=== PATIENT | male | born 1975 | race Hispanic/Latino ===

== ENCOUNTER 2016-10-04 01:01 | Observation (INO) | payer OTHER ==
[2016-10-04 01:09] VITALS: BP 132/74; PULSE 63; RESP 18; TEMP 98; O2SAT 100
[2016-10-04] MEDS ORDERED: Sodium Chloride 0.9% 1,000 ML IV STA (01:26)
[2016-10-04 01:41] LABS: BASO % 0.4 % (0.0-2.0); EOS % 0.4 % (0.0-4.0); HEMATOCRIT 45.4 % (35.0-51.0); LYMPH # 2.6 K/uL (1.0-4.3); LYMPH % 23.3 % (20.0-40.0); MEAN CELL VOLUME 89.5 fl (80.0-94.0); MEAN CORPUSCULAR HGB CONC 33.6 g/dL (33.0-37.0); MEAN PLATELET VOLUME 8.8 fl (7.2-11.7); MONO # 0.7 K/uL (0.0-0.8); MONO % 6.2 % (0.0-10.0); NEUT # 7.9 K/uL (1.8-7.0); NEUT % 69.7 % (50.0-75.0); NRBC % 0.1 % (0.0-0.0); WHITE BLOOD COUNT 11.4 K/uL (4.8-10.8)
[2016-10-04 01:49] LABS: ALB/GLOB RATIO 1.5 (1.0-2.1); ALKALINE PHOSPHATASE 91 U/L (38-126); ALT/SGPT 34 U/L (21-72); AST/SGOT 25 U/L (17-59); BILIRUBIN,TOTAL 0.9 mg/dl (0.2-1.3); BLOOD UREA NITROGEN 17 mg/dl (9-20); CARBON DIOXIDE 27 mmol/L (22-30); CHLORIDE 102 mmol/L (98-107); GFR AFRICAN-AMERICAN > 60; GLUCOSE,RANDOM 96 mg/dL (75-110); LIPASE 70 U/L (23-300); SODIUM 147 mmol/l (132-148); TOTAL PROTEIN 8.5 G/DL (6.3-8.2)
[2016-10-04 02:13] LABS: ALCOHOL SERUM 49 mg/dl (0-10)
[2016-10-04] MEDS ORDERED: Iohexol 240 (50 ml) PO ONE (02:47)
[2016-10-04] MEDS ORDERED: Iohexol 240 (50 ml) ONE (02:52)
[2016-10-04 02:58] LABS: RBC URINE 2 /hpf (0-3); URINE BACTERIA RARE (<OCC); URINE BILIRUBIN NEGATIVE (NEGATIVE); URINE BLOOD NEGATIVE (NEGATIVE); URINE COLOR YELLOW (YELLOW); URINE GLUCOSE (UA) NEG (Normal); URINE KETONE TRACE mg/dL (NEGATIVE); URINE LEUKOCYTE ESTERASE NEG Leu/uL (Negative); URINE PROTEIN 30 mg/dL (NEGATIVE); URINE UROBILINOGEN 0.2-1.0 mg/dL (0.2-1.0); WBC URINE 2 /hpf (0-5)
--- NOTE | 2016-10-04 03:32 | ED PDOC ---
"HPI: Abdomen Time Seen by Provider: 10/04/16 01:04 Chief Complaint (Nursing): Abdominal Pain Chief Complaint (Provider): Adominal pain History Per: Patient History/Exam Limitations: no limitations Onset/Duration Of Symptoms: Hrs (2x) Current Symptoms Are (Timing): Still Present Severity: Moderate Location Of Pain/Discomfort: Epigastric Associated Symptoms: Nausea, Vomiting. denies: Diarrhea, Constipation, Urinary Symptoms Additional Complaint(s): 40 year old male with a pertinent medical history of a cholesystectomy and pancreatitis presents to the ED with complaints of sever epigastric pain that started 2x hours prior to arrival. He reports having normal bowel movements and is passing gas, but complains of having nausea and vomiting. He reports taking oxicodone with no relief. He denies ingesting alcohol, and denies having any associated urinary symptoms. PMD: Ke Brody MD. Past Medical History Reviewed: Historical Data, Nursing Documentation, Vital Signs Vital Signs: Last Vital Signs Temp 98 F 10/04/16 01:04 Pulse 63 10/04/16 01:04 Resp 18 10/04/16 01:04 BP 132/74 10/04/16 01:04 Pulse Ox 100 10/04/16 05:31 - Medical History PMH: Anxiety, Back Problems, Pneumonia Denies: HIV, Chronic Kidney Disease - Surgical History Surgical History: Appendectomy, Cholecystectomy - Family History Family History: States: Unknown Family Hx - Social History Alcohol: None Drugs: Denies - Home Medications Home Medications: Ambulatory Orders Medication Instructions Recorded Dicyclomine [Bentyl] 20 mg PO BID 08/01/16 Omeprazole [Omeprazole] 20 mg PO DAILY 08/01/16 Ondansetron HCl [Ondansetron HCl] 4 mg PO Q6 PRN 08/01/16 ALPRAZolam [Xanax] 2 mg PO TID 08/02/16 Omeprazole Magnesium [Prilosec Otc] 20 mg PO DAILY #30 tcp 10/04/16 - Allergies Allergies/Adverse Reactions: Allergies Allergy/AdvReac Type Severity Reaction Status Date / Time No Known Allergies Allergy Verified 10/16/14 11:19 Review of Systems ROS Statement: Except As Marked, All Systems Reviewed And Found Negative Gastrointestinal: Positive for: Nausea, Vomiting, Abdominal Pain (epigastric). Negative for: Diarrhea, Constipation Physical Exam - Reviewed Nursing Documentation Reviewed: Yes Vital Signs Reviewed: Yes - Physical Exam Appears: Positive for: Well, Non-toxic, No Acute Distress Head Exam: Positive for: ATRAUMATIC, NORMOCEPHALIC Skin: Positive for: Normal Color, Warm, Dry Eye Exam: Positive for: Normal appearance Cardiovascular/Chest: Positive for: Regular Rate, Rhythm Respiratory: Positive for: Normal Breath Sounds Gastrointestinal/Abdominal: Positive for: Tenderness (epigastric tenderness, rest of abdomen is soft) Neurologic/Psych: Positive for: Alert, Oriented (3x) - Laboratory Results Result Diagrams: 10/04/16 01:32 10/04/16 01:32 - ECG O2 Sat by Pulse Oximetry: 100 (RA) Pulse Ox Interpretation: Normal - CT Scan/US abd and pelvis with PO and IV contrast Other Rad Studies (CT/US): Read By Radiologist, Radiology Report Reviewed Medical Decision Making Medical Decision Makin:04 Initial impression: 40 year old male with severe epigastric tenderness. Differential diagnoses include but are not limited to pancreatitis, small bowel obstruction, and gastritis. Initial plan: * CT abd and pelvis w/ PO and IV contrast * alcohol serum * CMP * drug screen, urinary * LDH * lipase * CBC * morphine 4mg IVP * morphine 4mg IVP * IV NS 1,000ml: 1,000mls/hr * omnipaque 240: 50ml PO * pepcid 20mg IVP * urinalysis * reevaluation 2:48 Patient will be placed into ED observation secondary to clinical condition. See ED obs note for further updates. Scribe Attestation: Documented by Janey Roberson, acting as a scribe for uJan Mackenzie MD. Provider Scribe Attestation: All medical record entries made by the Scribe were at my direction and personally dictated by me. I have reviewed the chart and agree that the record accurately reflects my personal performance of the history, physical exam, medical decision making, and the department course for this patient. I have also personally directed, reviewed, and agree with the discharge instructions and disposition. ED OBSERVATION Date of observation admission: 10/04/16 Time of observation admission: 02:48 - Observation admission statement Patient is being placed in observation because:: secondary to clinical condition - Goals of Observation Goals of observation are:: Patient will be placed into ED observation pending CT scans, reevaluation, and final disposition. - Progress Note Progress Note: 10/04/16 04:56 CT abd and pelvis with PO and IV contrast FINDINGS: Lower thorax: No acute findings. ABDOMEN: Liver: Unremarkable. No mass. Gallbladder and bile ducts: Cholecystectomy. No ductal dilation. Pancreas: No ductal dilation. No mass. Spleen: Borderline splenomegaly. Adrenals: No mass. Kidneys and ureters: No mass. No hydronephrosis. Stomach and bowel: No definite mural thickening. No obstruction. Appendix: Appendectomy. PELVIS: Bladder: Unremarkable. Reproductive: Unremarkable as visualized. SCOTT OREILLY | Preliminary Radiology Report HOSPITAL NURSE (QA) DISCREPANCY? If there is a discrepancy between the preliminary and final interpretation, please notify [employer] via [email or web address]. If you do not have access to our QA portal, call our QA team at [phone] CONFIDENTIALITY STATEMENT This report is intended only for the use of the referring physician, and only in accordance with law, If you received this in error, call [phone] Page 2 of 2 ABDOMEN and PELVIS: Intraperitoneal space: No significant fluid collection. No free air. Bones/joints: No acute fracture. Soft tissues: Unremarkable. Vasculature: Unremarkable. No abdominal aortic aneurysm. Lymph nodes: No pathologically enlarged lymph nodes. IMPRESSION: 1. No definite acute intraabdominal abnormality. 2. Incidental/non-acute findings are described above. 10/04/16 05:28 Upon reevaluation, patient is feeling much better and is PO tolerant. Counseling was provided and all questions were answered regarding diagnosis and need for follow up with Dr. aMrio as soon as possible next week. Disposition - Clinical Impression Clinical Impression: Abdominal pain, Gastritis - Disposition Disposition: Routine/Home Disposition Time: 05:28 Condition: IMPROVED"
[2016-10-04] MEDS ORDERED: Sodium Chloride 0.9% 50 ML IV ONE (04:16)
[2016-10-04] MEDS ORDERED: Iohexol 300 100 ML IJ ONE (04:16)
--- NOTE | 2016-10-04 10:28 | CT ---
PROCEDURE: CT Abdomen and Pelvis with contrast HISTORY: diffuse abd pain COMPARISON: 08/02/2016 TECHNIQUE: CT of the abdomen and pelvis was obtained. Coronal and sagittal reformatted images were obtained. Contrast dose: 100 mL. Radiation dose: Total exam DLP = 882.86 mGy-cm. This CT was performed using one or more of the following dose reduction techniques: Automated exposure control, adjustment of the mA and/or KV according to patient size, and/or use of iterative reconstruction technique. FINDINGS: LOWER THORAX: Unremarkable. LIVER: Unremarkable. No gross lesion or ductal dilatation. Punctate calcification in the inferior aspect of the right hepatic lobe. GALLBLADDER AND BILE DUCTS: Gallbladder not seen. Surgical clips seen in the gallbladder fossa. PANCREAS: Unremarkable. No gross lesion or ductal dilatation. SPLEEN: Upper limits normal size of the spleen. ADRENALS: Unremarkable. No mass. KIDNEYS AND URETERS: Unremarkable. No hydronephrosis. No solid mass. VASCULATURE: Unremarkable. No aortic aneurysm. BOWEL: Lack opacification with oral contrast limits evaluation of the colon. Possible surgical clip at the base of the cecum. APPENDIX: Appendix not seen. No evidence of inflammation in the right lower quadrant. PERITONEUM: Unremarkable. No free fluid. No free air. LYMPH NODES: Unremarkable. No enlarged lymph nodes. BLADDER: Unremarkable. REPRODUCTIVE: Unremarkable. BONES: No acute fracture. OTHER FINDINGS: None. IMPRESSION: No acute pathology identified. Please note that this report is in general agreement with the preliminary report provided by Marco A.
== END 2016-10-04 05:27 | disposition home or self-care (01) ==
LOC: H.ER 01:01 → H.EROBSV 02:48
PROVIDERS: ADMIT Emergency Medicine; ATTEND Emergency Medicine
DX: K29.70 Gastritis, unspecified, without bleeding (principal); F41.9 Anxiety disorder, unspecified

== ENCOUNTER 2017-03-13 04:53 | Observation (INO) | payer OTHER ==
[2017-03-13] MEDS ORDERED: Alum-Mag Hydrox-Simethicone Susp (30 mL) PO STA (05:09)
[2017-03-13] MEDS ORDERED: Sodium Chloride 0.9% 1,000 ML IV STA (05:10)
--- NOTE | 2017-03-13 05:17 | ED PDOC ---
HPI: Abdomen Time Seen by Provider: 03/13/17 05:01 Chief Complaint (Nursing): Abdominal Pain History Per: Patient Additional Complaint(s): Pt is a 41 yo male, no PMH, ambulated to ER for eval of abdominal pain, nausea and vomiting x 7-8 episodes onset at 21:00. Pt unable to tolerate any medications PO at home. no fever or chills. no diarrhea Past Medical History Reviewed: Nursing Documentation, Vital Signs Vital Signs: Last Vital Signs Temp 98.5 F 03/13/17 05:03 Pulse 64 03/13/17 05:03 Resp 16 03/13/17 05:03 BP 135/83 03/13/17 05:03 Pulse Ox 99 03/13/17 05:17 - Medical History PMH: Anxiety, Back Problems, Pneumonia Denies: HIV, Chronic Kidney Disease - Surgical History Surgical History: Appendectomy, Cholecystectomy - Family History Family History: States: Unknown Family Hx - Living Arrangements Living Arrangements: With Family - Social History Current smoker - smoking cessation education provided: No Alcohol: None Drugs: Denies - Home Medications Home Medications: Ambulatory Orders Medication Instructions Recorded Dicyclomine [Bentyl] 20 mg PO BID 08/01/16 Omeprazole [Omeprazole] 20 mg PO DAILY 08/01/16 Ondansetron HCl [Ondansetron HCl] 4 mg PO Q6 PRN 08/01/16 ALPRAZolam [Xanax] 2 mg PO TID 08/02/16 Omeprazole Magnesium [Prilosec Otc] 20 mg PO DAILY #30 tcp 10/04/16 - Allergies Allergies/Adverse Reactions: Allergies Allergy/AdvReac Type Severity Reaction Status Date / Time No Known Allergies Allergy Verified 10/16/14 11:19 Review of Systems ROS Statement: Except As Marked, All Systems Reviewed And Found Negative Gastrointestinal: Positive for: Nausea, Vomiting, Abdominal Pain Physical Exam - Reviewed Nursing Documentation Reviewed: Yes Vital Signs Reviewed: Yes - Physical Exam Appears: Positive for: Non-toxic, No Acute Distress, Uncomfortable Head Exam: Positive for: ATRAUMATIC, NORMAL INSPECTION, NORMOCEPHALIC Skin: Positive for: Normal Color, Warm, DRY Eye Exam: Positive for: EOMI, Normal appearance, PERRL ENT: Positive for: Normal ENT Inspection Neck: Positive for: Normal, Painless ROM Cardiovascular/Chest: Positive for: Regular Rate, Rhythm Respiratory: Positive for: CNT, Normal Breath Sounds Gastrointestinal/Abdominal: Positive for: Bowel Sounds, Soft, Tenderness ( epigastric) Back: Positive for: Normal Inspection Extremity: Positive for: Normal ROM Neurologic/Psych: Positive for: Alert, Oriented - ECG O2 Sat by Pulse Oximetry: 99 Medical Decision Making Medical Decision Making: IV access established and treatment initiated with IVF, Zofran and Morphine GI cocktail administered as well Case endorsed to ED MD, Dr. Mackenzie, pending diagnostic review and re-eval Disposition - Clinical Impression Clinical Impression: Gastritis - Patient ED Disposition Is Patient to be Admitted: Transfer of Care - Disposition Disposition: Transfer of Care Disposition Time: 06:00 Condition: STABLE Forms: [employer] (Maltese)
[2017-03-13 05:36] LABS: BASO % 0.3 % (0.0-2.0); EOS % 0.1 % (0.0-4.0); HEMATOCRIT 46.8 % (35.0-51.0); LYMPH # 1.5 K/uL (1.0-4.3); MEAN CELL VOLUME 88.8 fl (80.0-94.0); MEAN CORPUSCULAR HEMOGLOBIN 29.7 pg (27.0-31.0); MEAN CORPUSCULAR HGB CONC 33.5 g/dL (33.0-37.0); MEAN PLATELET VOLUME 8.6 fl (7.2-11.7); MONO # 0.6 K/uL (0.0-0.8); MONO % 5.3 % (0.0-10.0); NEUT # 9.6 K/uL (1.8-7.0); NEUT % 81.3 % (50.0-75.0); RED CELL DISTRIBUTION WIDTH 13.1 % (11.5-14.5); WHITE BLOOD COUNT 11.9 K/uL (4.8-10.8)
[2017-03-13 05:44] LABS: ALB/GLOB RATIO 1.6 (1.0-2.1); ALKALINE PHOSPHATASE 77 U/L (38-126); ALT/SGPT 37 U/L (21-72); AMYLASE 65 U/L (30-110); AST/SGOT 25 U/L (17-59); BILIRUBIN,TOTAL 1.3 mg/dl (0.2-1.3); BLOOD UREA NITROGEN 16 mg/dl (9-20); CALCIUM 10.3 mg/dL (8.4-10.2); CARBON DIOXIDE 26 mmol/L (22-30); CHLORIDE 101 mmol/L (98-107); GFR AFRICAN-AMERICAN > 60; GLUCOSE,RANDOM 108 mg/dL (75-110); LIPASE 23 U/L (23-300); POTASSIUM 4.7 MMOL/L (3.6-5.0); SODIUM 141 mmol/l (132-148); TOTAL PROTEIN 8.3 G/DL (6.3-8.2)
[2017-03-13] MEDS ORDERED: Alum-Mag Hydrox-Simethicone Susp (30 mL) ONE (05:49)
--- NOTE | 2017-03-13 06:01 | ED PDOC ---
- Laboratory Results Result Diagrams: 03/13/17 05:10 03/13/17 05:10 - ECG O2 Sat by Pulse Oximetry: 99 Medical Decision Making Medical Decision Makin -Patient transferred to ut by Eboni HINOJOSA. [address] in ED obs due to patient's continued abd pain. Disposition - Clinical Impression Clinical Impression: Gastritis, Abdominal pain - POA Present On Arrival: None - Disposition Referrals: Kwame Gaffney MD [Staff Provider] - Disposition: Transfer of Care Disposition Time: 07:00 Condition: STABLE Prescriptions: Omeprazole 20 mg PO DAILY #30 capsule. Instructions: Gastritis (ED) Forms: [employer] (Faroese) Patient Signed Over To: Susu Villatoro Handoff Comments: pending CT. ED OBSERVATION Date of observation admission: 03/13/17 Time of observation admission: 06:57 - Observation admission statement Patient is being placed in observation because:: Extended length of workup. - Goals of Observation Goals of observation are:: Diagnosis of condition. - Progress Note Progress Note: 03/13/17 06:57 Patient is having worsening of his abdominal pain, will do CT to r/o SBO given abdominal surgeries.
[2017-03-13] MEDS ORDERED: Iohexol 240 (50 ml) PO ONE (06:54)
[2017-03-13] MEDS ORDERED: Iohexol 240 (50 ml) ONE (06:56)
--- NOTE | 2017-03-13 07:28 | ED PDOC ---
- Laboratory Results Result Diagrams: 03/13/17 05:10 03/13/17 05:10 - ECG O2 Sat by Pulse Oximetry: 99 <Susu Villatoro - Last Filed: 03/13/17 07:28> - Laboratory Results Result Diagrams: 03/13/17 05:10 03/13/17 05:10 <Jim Jaffe - Last Filed: 03/13/17 10:40> Disposition <Susu Villatoro - Last Filed: 03/13/17 07:28> <Jim Jaffe - Last Filed: 03/13/17 10:40> - Clinical Impression Clinical Impression: Gastritis, Abdominal pain - Disposition Condition: STABLE Addendum <Susu Villatoro - Last Filed: 03/13/17 07:28> <Jim Jaffe - Last Filed: 03/13/17 10:40> Addendum: 03/13/17 07:00 Pt signed out by Dr. Mackenzie pending CT. (Susu Villatoro)
[2017-03-13] MEDS ORDERED: Sodium Chloride 0.9% 50 ML IV ONE (09:27)
[2017-03-13] MEDS ORDERED: Iohexol 300 100 ML IJ ONE (09:27)
--- NOTE | 2017-03-13 10:11 | CT ---
PROCEDURE: CT Abdomen and Pelvis with contrast HISTORY: mult abd surgeries, abd pain, r/o sbo COMPARISON: 10/04/2016. TECHNIQUE: Contrast dose: 95 cc Omnipaque 300 Radiation dose: Total exam DLP = 967.85 mGy-cm. This CT exam was performed using one or more of the following dose reduction techniques: Automated exposure control, adjustment of the mA and/or kV according to patient size, and/or use of iterative reconstruction technique. FINDINGS: LOWER THORAX: Unremarkable. LIVER: Hepatic steatosis. No focal masses. No intrahepatic bile duct dilatation or perihepatic ascites. GALLBLADDER AND BILE DUCTS: Status post cholecystectomy. No abnormality is seen in the gallbladder fossa. PANCREAS: Unremarkable. No gross lesion or ductal dilatation. SPLEEN: Borderline splenomegaly. ADRENALS: Unremarkable. No mass. KIDNEYS AND URETERS: Unremarkable. No hydronephrosis. No solid mass. VASCULATURE: Unremarkable. No aortic aneurysm. BOWEL: Dilated loops of proximal small bowel without clear, obvious transition. Differential diagnosis includes early/incomplete small bowel obstruction. Enteritis can also assume this. Constipation without fecal impaction or obstruction. APPENDIX: Not visualized. PERITONEUM: Unremarkable. No free fluid. No free air. LYMPH NODES: Unremarkable. No enlarged lymph nodes. BLADDER: Unremarkable. REPRODUCTIVE: Unremarkable. BONES: No acute fracture. OTHER FINDINGS: None. IMPRESSION: Dilated loops of proximal small bowel. Differential considerations include early/incomplete proximal small bowel obstruction. Enteritis should also be considered. No free air, free fluid or drainable collection.
--- NOTE | 2017-03-13 10:44 | ED PDOC ---
- Laboratory Results Result Diagrams: 03/13/17 05:10 03/13/17 05:10 - ECG O2 Sat by Pulse Oximetry: 99 (RA) Pulse Ox Interpretation: Normal Medical Decision Making Medical Decision Makin03/13/17 07:00 Pt signed out by Dr. Mackenzie pending CT. Time: 10:10 CT Abdomen/Pelvis: FINDINGS: LOWER THORAX: Unremarkable. LIVER: Hepatic steatosis. No focal masses. No intrahepatic bile duct dilatation or perihepatic ascites. GALLBLADDER AND BILE DUCTS: Status post cholecystectomy. No abnormality is seen in the gallbladder fossa. PANCREAS: Unremarkable. No gross lesion or ductal dilatation. SPLEEN: Borderline splenomegaly. ADRENALS: Unremarkable. No mass. KIDNEYS AND URETERS: Unremarkable. No hydronephrosis. No solid mass. VASCULATURE: Unremarkable. No aortic aneurysm. BOWEL: Dilated loops of proximal small bowel without clear, obvious transition. Differential diagnosis includes early/incomplete small bowel obstruction. Enteritis can also assume this. Constipation without fecal impaction or obstruction. APPENDIX: Not visualized. PERITONEUM: Unremarkable. No free fluid. No free air. LYMPH NODES: Unremarkable. No enlarged lymph nodes. BLADDER: Unremarkable. REPRODUCTIVE: Unremarkable. BONES: No acute fracture. OTHER FINDINGS: None. IMPRESSION: Dilated loops of proximal small bowel. Differential considerations include early/incomplete proximal small bowel obstruction. Enteritis should also be considered. No free air, free fluid or drainable collection. Time: 10:40 --Patient is to be admitted inpatient to Med/Surg for SBO, under the care of Dr. Kwame Gaffney Time: 11:00 --Spoke to surgery resident Scribe Attestation: Documented by Marie Montanez, acting as a scribe for Susu Villatoro MD Provider Scribe Attestation: All medical record entries made by the Scribe were at my direction and personally dictated by me. I have reviewed the chart and agree that the record accurately reflects my personal performance of the history, physical exam, medical decision making, and the department course for this patient. I have also personally directed, reviewed, and agree with the discharge instructions and disposition. Disposition - Clinical Impression Clinical Impression: SBO (small bowel obstruction) - POA Present On Arrival: None - Disposition Disposition: Admitted as In-Patient Disposition Time: 10:24 Condition: STABLE
[2017-03-13] MEDS ORDERED: Potassium Ch 20mEq in D5-1/2NS 1,000 ML IV SCH ×2 (11:00→11:30)
[2017-03-13 12:06] LABS: PARTIAL THROMBOPLASTIN TIME 34.9 Seconds (25.6-37.1)
--- NOTE | 2017-03-13 12:48 | CP.PCM.CON ---
<YannickTita - Last Filed: 03/13/17 12:45> History of Present Illness - History of Present Illness History of Present Illness: General surgery - DR. Trinidad 41yo M who is s/p lap appendectomy several years ago and s/p lap eloise in Jul 2016, presenting w/ N/V and abdominal pain since last night. Pt states that he ate some pasta at a kid[employer] alliance party and a few hours later he began to feel nauseous and vomited several times, gastric contents, followed by dry heaving. He states that afterwards he developed some cramping abdominal pains throughout his abdomen, intermittent, moderate intensity. He denies any further vomiting since arrival. Pt states that he had a BM yesterday and it was normal. He denies Fevers/Chills, SOB/Chest pain, Dysuria/Hematuria, Constipation, Diarrhea. CT done in the ED shows some mildly dilated small bowel loops proximally which may suggest early partial SBO vs. enteritis. Labs significant for WBC of 11.9 Review of Systems - Review of Systems All systems: reviewed and no additional remarkable complaints except (as per HPI ) Past Patient History - Past Medical History & Family History Past Medical History?: Yes - Past Social History Alcohol: None Drugs: Denies - CARDIAC Hx Cardiac Disorders: No - PULMONARY Hx Pneumonia: Yes - NEUROLOGICAL Hx Neurological Disorder: No - HEENT Hx HEENT Problems: No - RENAL Hx Chronic Kidney Disease: No - ENDOCRINE/METABOLIC Hx Endocrine Disorders: No - HEMATOLOGICAL/ONCOLOGICAL Hx Blood Disorders: No - INTEGUMENTARY Hx Dermatological Problems: No - MUSCULOSKELETAL/RHEUMATOLOGICAL Hx Musculoskeletal Disorders: Yes Hx Back Pain: Yes Hx Herniated Disk: Yes - GASTROINTESTINAL Hx Gastrointestinal Disorders: Yes Other/Comment: Pancreatitis secondary to gallstones - GENITOURINARY/GYNECOLOGICAL Hx Genitourinary Disorders: No - PSYCHIATRIC Hx Anxiety: Yes - SURGICAL HISTORY Hx Appendectomy: Yes Hx Cholecystectomy: Yes - ANESTHESIA Hx Anesthesia: Yes Hx Anesthesia Reactions: No Hx Malignant Hyperthermia: No Meds Allergies/Adverse Reactions: Allergies Allergy/AdvReac Type Severity Reaction Status Date / Time No Known Allergies Allergy Verified 10/16/14 11:19 - Medications Medications: Current Medications Hydromorphone HCl (Dilaudid) 1 mg IVP Q4H PRN PRN Reason: Pain, severe (8-10) Potassium Chloride/Dextrose/Sod Cl (Potassium Chl 20 Meq In D5-1/2ns) 1,000 mls @ 84 mls/hr IV .[id number] ROBERTO Stop: 03/14/17 11:23 Ondansetron HCl (Zofran Inj) 4 mg IVP Q6 PRN PRN Reason: Nausea/Vomiting Pantoprazole Sodium (Protonix Inj) 40 mg IVP DAILY ROBERTO Physical Exam - Constitutional Appears: No Acute Distress - Head Exam Head Exam: ATRAUMATIC, NORMAL INSPECTION, NORMOCEPHALIC - Eye Exam Eye Exam: Normal appearance - Respiratory Exam Respiratory Exam: NORMAL BREATHING PATTERN. absent: Respiratory Distress - Cardiovascular Exam Cardiovascular Exam: REGULAR RHYTHM - GI/Abdominal Exam GI & Abdominal Exam: Soft, Tenderness (mild ttp diffusely). absent: Distended, Firm, Guarding, Rebound - Neurological Exam Neurological exam: Alert, Oriented x3 - Psychiatric Exam Psychiatric exam: Normal Affect, Normal Mood - Skin Skin Exam: Dry, Intact Results - Vital Signs Recent Vital Signs: Last Vital Signs Temp 98.5 F 03/13/17 05:03 Pulse 64 03/13/17 05:03 Resp 16 03/13/17 05:03 BP 135/83 03/13/17 05:03 Pulse Ox 99 03/13/17 11:47 - Labs Result Diagrams: 03/13/17 05:10 03/13/17 05:10 Labs: Laboratory Results - last 24 hr 03/13/17 03/13/17 11:30 11:30 PT 12.4 INR 1.2 APTT 34.9 Blood Type O POSITIVE Antibody Screen Negative BBK History Checked No verified bt Assessment & Plan - Assessment and Plan (Free Text) Assessment: 41yo M w/ hx of lap appy and eloise, presenting with N/V and abdominal pain since last night -CT reviewed, no obvious obstruction or transition point -Exam and Hx more consistent with Enteritis -Continue bowel rest w/ NPO for now, then slowly ADAT when symptoms improve -IVF and Abx, Zofran prn -No surgical intervention DW DR Amos Lanier PGY3 <Paul Francis - Last Filed: 03/13/17 15:02> History of Present Illness - History of Present Illness History of Present Illness: Patient was seen and examined at the bedside. Agree with resident's note above. Passing flatus today and had a normal bowel movements yesterday. Currently states that abdominal pain has improved, currently denies any nausea or vomiting. Meds - Medications Medications: Current Medications Hydromorphone HCl (Dilaudid) 0.5 mg IVP Q4H PRN PRN Reason: Pain, severe (8-10) Last Admin: 03/13/17 13:22 Dose: 0.5 mg Lactated Ringer's (Lactated Ringer's) 1,000 mls @ 100 mls/hr IV .Q10H ROBERTO Last Admin: 03/13/17 13:22 Dose: 100 mls/hr Ciprofloxacin (Cipro 400mg/200ml Dsw) 400 mg in 200 mls @ 200 mls/hr IVPB BID ROBERTO Metronidazole 250 mg/ (Miscellaneous) 50 mls @ 50 mls/hr IVPB Q8 [facility] Stop: 03/14/17 09:59 Ondansetron HCl (Zofran Inj) 4 mg IVP Q4 PRN PRN Reason: Nausea/Vomiting Pantoprazole Sodium (Protonix Inj) 40 mg IVP DAILY [facility] Results - Vital Signs Recent Vital Signs: Last Vital Signs Temp 98.5 F 03/13/17 05:03 Pulse 64 03/13/17 05:03 Resp 16 03/13/17 05:03 BP 135/83 03/13/17 05:03 Pulse Ox 99 03/13/17 11:47 - Labs Result Diagrams: 03/13/17 05:10 03/13/17 05:10 Labs: Laboratory Results - last 24 hr 03/13/17 03/13/17 11:30 11:30 PT 12.4 INR 1.2 APTT 34.9 Blood Type O POSITIVE Antibody Screen Negative BBK History Checked No verified bt - Imaging and Cardiology CT scan - abdomen Status: Image reviewed by me, Report reviewed by me Assessment & Plan - Assessment and Plan (Free Text) Plan: - Start clear liquid diet - pain control - Zofran prn - Pepcid - repeat labs in am - No general surgery intervention at present time - Will follow
[2017-03-13] MEDS: Lactated Ringer's 1,000 ML IV SCH (13:22)
[2017-03-13] MEDS: HYDROmorphone 0.5 mg/0.5 ml ISec IVP PRN ×3 (13:22→21:40)
--- NOTE | 2017-03-13 14:22 | CP.PCM.HP ---
History of Present Illness - History of Present Illness History of Present Illness: 41 y/o M with PMHx significant for anxiety, s/o cholecystectomy on July/2016 , and appendectomy 4 years ago who presents to ED c/o upper abdominal pain that started last night around 9 pm, associated with nausea, and 8-9 nonbloody vomits. Patient states that this is the first time he presents these symptoms. Last bowel movement was yesterday and normal. Reports a regular, daily BM pattern. Denies fevers, chills, recent infection, urinary symptoms, blood in urine or stools. PMD: Dr. Gaffney PMHx: Anxiety Meds: Xanax 2 mg PRN for anxiety prescribed by PMD. NO f/u with outpatient Psych SHx: Cholecystectomy, appendectomy SocialHx: Smoker of 1/2 pack of cigarettes daily x 20 years, etoh socially, no recreational drugs Present on Admission - Present on Admission Any Indicators Present on Admission: No Urinary Catheter: No Decubitus Ulcer Present: No Review of Systems - Review of Systems All systems: reviewed and no additional remarkable complaints except (as per HPI ) Past Patient History - Past Medical History & Family History Past Medical History?: Yes - Past Social History Alcohol: None Drugs: Denies - CARDIAC Hx Cardiac Disorders: No - PULMONARY Hx Pneumonia: Yes - NEUROLOGICAL Hx Neurological Disorder: No - HEENT Hx HEENT Problems: No - RENAL Hx Chronic Kidney Disease: No - ENDOCRINE/METABOLIC Hx Endocrine Disorders: No - HEMATOLOGICAL/ONCOLOGICAL Hx Blood Disorders: No - INTEGUMENTARY Hx Dermatological Problems: No - MUSCULOSKELETAL/RHEUMATOLOGICAL Hx Musculoskeletal Disorders: Yes Hx Back Pain: Yes Hx Herniated Disk: Yes - GASTROINTESTINAL Hx Gastrointestinal Disorders: Yes Other/Comment: Pancreatitis secondary to gallstones - GENITOURINARY/GYNECOLOGICAL Hx Genitourinary Disorders: No - PSYCHIATRIC Hx Anxiety: Yes - SURGICAL HISTORY Hx Appendectomy: Yes Hx Cholecystectomy: Yes - ANESTHESIA Hx Anesthesia: Yes Hx Anesthesia Reactions: No Hx Malignant Hyperthermia: No Meds Allergies/Adverse Reactions: Allergies Allergy/AdvReac Type Severity Reaction Status Date / Time No Known Allergies Allergy Verified 10/16/14 11:19 Physical Exam - Constitutional Appears: No Acute Distress - ENT Exam ENT Exam: Mucous Membranes Moist - Respiratory Exam Respiratory Exam: Clear to Auscultation Bilateral, NORMAL BREATHING PATTERN - Cardiovascular Exam Cardiovascular Exam: REGULAR RHYTHM, +S1, +S2 - GI/Abdominal Exam GI & Abdominal Exam: Normal Bowel Sounds, Soft, Tenderness (tender to palpation of upper abdomen, but no rebound noted). absent: Distended, Guarding - Extremities Exam Extremities exam: Positive for: normal inspection. Negative for: calf tenderness, pedal edema - Neurological Exam Neurological exam: Alert, Oriented x3 - Psychiatric Exam Psychiatric exam: Normal Affect, Normal Mood - Skin Skin Exam: Dry, Intact, Normal Color Results - Vital Signs Recent Vital Signs: Last Vital Signs Temp 98.5 F 03/13/17 05:03 Pulse 64 03/13/17 05:03 Resp 16 03/13/17 05:03 BP 135/83 03/13/17 05:03 Pulse Ox 99 03/13/17 11:47 - Labs Result Diagrams: 03/13/17 05:10 03/13/17 05:10 Labs: Laboratory Results - last 24 hr 03/13/17 03/13/17 11:30 11:30 PT 12.4 INR 1.2 APTT 34.9 Blood Type O POSITIVE Antibody Screen Negative BBK History Checked No verified bt Assessment & Plan - Assessment and Plan (Free Text) Assessment: 41 yo M admitted with abdominal pain and PO intolerance. Plan: Abdominal pain with PO intolerance. -Admit to [facility] -afebrile -NPO, bowel rest -IV fluids -c/w pain control -c/w zofran for nausea/vomiting -f/u CBC, CMP AM -CBC with mild leukocytosis CT abdomen showed :dilated loops of proximal small bowel. Possible evidence of early/incomplete proximal bowel obstruction. Enteritis -CMP: electrolytes WNL -General surgery consult appreciated, f/u recommendations H/o anxiety asymptomatic consider Xanax PRN if needed for anxiety DVT prophylaxis SCDs for now - Date & Time Date: 03/13/17 Time: 13:30
[2017-03-13] MEDS: metroNIDAZOLE 500mg/100ml NS 250 MG in Premixed IV 1 EA IVPB SCH (16:13)
[2017-03-13] MEDS: Ciprofloxacin 400mg/200ml D5W 400 MG/200 ML BAG IVPB SCH (16:15)
[2017-03-14] MEDS: Lactated Ringer's 1,000 ML IV SCH ×2 (00:19→08:22)
[2017-03-14] MEDS: metroNIDAZOLE 500mg/100ml NS 250 MG in Premixed IV 1 EA IVPB SCH ×2 (00:20→08:15)
[2017-03-14] MEDS: HYDROmorphone 0.5 mg/0.5 ml ISec IVP PRN ×2 (01:28→05:42)
[2017-03-14 06:37] LABS: HEMATOCRIT 40.6 % (35.0-51.0); MEAN CORPUSCULAR HEMOGLOBIN 30.6 pg (27.0-31.0); MEAN CORPUSCULAR HGB CONC 34.8 g/dL (33.0-37.0); RED CELL DISTRIBUTION WIDTH 12.8 % (11.5-14.5); WHITE BLOOD COUNT 6.9 K/uL (4.8-10.8)
[2017-03-14 06:48] LABS: ALB/GLOB RATIO 1.5 (1.0-2.1); ALKALINE PHOSPHATASE 61 U/L (38-126); ALT/SGPT 31 U/L (21-72); AST/SGOT 22 U/L (17-59); BILIRUBIN,TOTAL 1.5 mg/dl (0.2-1.3); BLOOD UREA NITROGEN 13 mg/dl (9-20); CALCIUM 9.4 mg/dL (8.4-10.2); CARBON DIOXIDE 28 mmol/L (22-30); CHLORIDE 103 mmol/L (98-107); GFR AFRICAN-AMERICAN > 60; GLUCOSE,RANDOM 99 mg/dL (75-110); POTASSIUM 4.1 MMOL/L (3.6-5.0); SODIUM 139 mmol/l (132-148); TOTAL PROTEIN 6.8 G/DL (6.3-8.2)
[2017-03-14] MEDS: Ciprofloxacin 400mg/200ml D5W 400 MG/200 ML BAG IVPB SCH (08:15)
--- NOTE | 2017-03-14 08:31 | CP.PCM.PN ---
<Tita Lanier - Last Filed: 03/14/17 08:29> Subjective - Date & Time of Evaluation Date of Evaluation: 03/14/17 Time of Evaluation: 08:29 - Subjective Subjective: General Surgery - Dr. Francis pt S&EMarii OSORIO. Pt states he feels much better and his abdominal pain is greatly improved. He is tolerating clear liquids with no N/V. He is passing flatus. No F/C, SOb/Cp. Objective - Vital Signs/Intake and Output Vital Signs (last 24 hours): Temp Pulse Resp BP Pulse Ox 98.1 F 66 20 114/75 99 03/14/17 00:24 03/14/17 00:24 03/14/17 00:24 03/14/17 00:24 03/14/17 00:24 - Medications Medications: Current Medications Alprazolam (Xanax) 0.5 mg PO BID [facility] Last Admin: 03/14/17 08:18 Dose: 0.5 mg Alprazolam (Xanax) 2 mg PO HS [facility] Last Admin: 03/13/17 22:58 Dose: 2 mg Lactated Ringer's (Lactated Ringer's) 1,000 mls @ 100 mls/hr IV .Q10H [facility] Last Admin: 03/14/17 08:22 Dose: 100 mls/hr Ciprofloxacin (Cipro 400mg/200ml Dsw) 400 mg in 200 mls @ 200 mls/hr IVPB BID [facility] Last Admin: 03/14/17 08:15 Dose: 200 mls/hr Metronidazole 250 mg/ (Miscellaneous) 50 mls @ 50 mls/hr IVPB Q8 [facility] Stop: 03/14/17 09:59 Last Admin: 03/14/17 08:15 Dose: 50 mls/hr Morphine Sulfate (Morphine) 2 mg IVP Q4 PRN PRN Reason: Pain, moderate (4-7) Ondansetron HCl (Zofran Inj) 4 mg IVP Q4 PRN PRN Reason: Nausea/Vomiting Pantoprazole Sodium (Protonix Inj) 40 mg IVP DAILY [facility] Last Admin: 03/14/17 08:16 Dose: 40 mg - Labs Labs: 03/14/17 05:30 03/14/17 05:30 PT 12.4 Seconds (9.8-13.1) 03/13/17 11:30 INR 1.2 (0.9-1.2) 03/13/17 11:30 APTT 34.9 Seconds (25.6-37.1) 03/13/17 11:30 - Constitutional Appears: No Acute Distress - Head Exam Head Exam: ATRAUMATIC, NORMAL INSPECTION, NORMOCEPHALIC - Eye Exam Eye Exam: Normal appearance - Respiratory Exam Respiratory Exam: NORMAL BREATHING PATTERN. absent: Respiratory Distress - GI/Abdominal Exam GI & Abdominal Exam: Soft. absent: Distended, Guarding, Rigid, Tenderness, Rebound - Extremities Exam Extremities Exam: absent: Calf Tenderness, Pedal Edema - Neurological Exam Neurological Exam: Alert, Oriented x3 - Psychiatric Exam Psychiatric exam: Normal Affect, Normal Mood - Skin Skin Exam: Dry, Intact Assessment and Plan - Assessment and Plan (Free Text) Assessment: 41yo M w/ enteritis, improving -Advance to full liquid diet -Continue Abx -No surgical intervention DW Dr Penny Lanier PGY3 <Paul Francis - Last Filed: 03/14/17 13:09> Subjective - Date & Time of Evaluation Time of Evaluation: 13:00 - Subjective Subjective: Patient was seen and examined at the bedside. Agree with resident's note above. Objective - Vital Signs/Intake and Output Vital Signs (last 24 hours): Temp Pulse Resp BP Pulse Ox 98.6 F 60 18 106/68 97 03/14/17 08:37 03/14/17 08:37 03/14/17 08:37 03/14/17 08:37 03/14/17 08:37 - Medications Medications: Current Medications Alprazolam (Xanax) 0.5 mg PO BID [facility] Last Admin: 03/14/17 08:18 Dose: 0.5 mg Alprazolam (Xanax) 2 mg PO HS [facility] Last Admin: 03/13/17 22:58 Dose: 2 mg Lactated Ringer's (Lactated Ringer's) 1,000 mls @ 100 mls/hr IV .Q10H [facility] Last Admin: 03/14/17 08:22 Dose: 100 mls/hr Ciprofloxacin (Cipro 400mg/200ml Dsw) 400 mg in 200 mls @ 200 mls/hr IVPB BID [facility] Last Admin: 03/14/17 08:15 Dose: 200 mls/hr Morphine Sulfate (Morphine) 2 mg IVP Q4 PRN PRN Reason: Pain, moderate (4-7) Ondansetron HCl (Zofran Inj) 4 mg IVP Q4 PRN PRN Reason: Nausea/Vomiting Pantoprazole Sodium (Protonix Inj) 40 mg IVP DAILY [facility] Last Admin: 03/14/17 08:16 Dose: 40 mg - Labs Labs: 03/14/17 05:30 03/14/17 05:30 PT 12.4 Seconds (9.8-13.1) 03/13/17 11:30 INR 1.2 (0.9-1.2) 03/13/17 11:30 APTT 34.9 Seconds (25.6-37.1) 03/13/17 11:30 Assessment and Plan - Assessment and Plan (Free Text) Plan: - Regular diet - No general surgery intervention at present time - Patient is clear for discharge home from the surgical stand point
[2017-03-14 08:38] VITALS: BP 106/68; PULSE 60; RESP 18; TEMP 98.6; O2SAT 97
--- NOTE | 2017-03-14 09:18 | CP.PCM.PN ---
Subjective - Date & Time of Evaluation Date of Evaluation: 03/14/17 Time of Evaluation: 08:00 - Subjective Subjective: 41 y/o M examined at bedside. Pt reports feeling well. Pt with good appetite, able to tolerate clear liquid diet w/ NO nausea or vomit. Pt explains abdominal pain has improved remarkably from yesterday. Last vomit yesterday at 7 am. Pt denies fever, CP, SOB, diarrhea, urinary complaints or peripheral edema. Objective - Vital Signs/Intake and Output Vital Signs (last 24 hours): Temp Pulse Resp BP Pulse Ox 98.6 F 60 18 106/68 97 03/14/17 08:37 03/14/17 08:37 03/14/17 08:37 03/14/17 08:37 03/14/17 08:37 - Medications Medications: Current Medications Alprazolam (Xanax) 0.5 mg PO BID [facility] Last Admin: 03/14/17 08:18 Dose: 0.5 mg Alprazolam (Xanax) 2 mg PO HS [facility] Last Admin: 03/13/17 22:58 Dose: 2 mg Lactated Ringer's (Lactated Ringer's) 1,000 mls @ 100 mls/hr IV .Q10H [facility] Last Admin: 03/14/17 08:22 Dose: 100 mls/hr Ciprofloxacin (Cipro 400mg/200ml Dsw) 400 mg in 200 mls @ 200 mls/hr IVPB BID [facility] Last Admin: 03/14/17 08:15 Dose: 200 mls/hr Metronidazole 250 mg/ (Miscellaneous) 50 mls @ 50 mls/hr IVPB Q8 [facility] Stop: 03/14/17 09:59 Last Admin: 03/14/17 08:15 Dose: 50 mls/hr Morphine Sulfate (Morphine) 2 mg IVP Q4 PRN PRN Reason: Pain, moderate (4-7) Ondansetron HCl (Zofran Inj) 4 mg IVP Q4 PRN PRN Reason: Nausea/Vomiting Pantoprazole Sodium (Protonix Inj) 40 mg IVP DAILY [facility] Last Admin: 03/14/17 08:16 Dose: 40 mg - Labs Labs: 03/14/17 05:30 03/14/17 05:30 PT 12.4 Seconds (9.8-13.1) 03/13/17 11:30 INR 1.2 (0.9-1.2) 03/13/17 11:30 APTT 34.9 Seconds (25.6-37.1) 03/13/17 11:30 - Constitutional Appears: Well, Non-toxic, No Acute Distress - Eye Exam Eye Exam: EOMI, Normal appearance - ENT Exam ENT Exam: Mucous Membranes Moist, Normal Exam - Neck Exam Neck Exam: Full ROM - Respiratory Exam Respiratory Exam: Clear to Ausculation Bilateral - Cardiovascular Exam Cardiovascular Exam: REGULAR RHYTHM - GI/Abdominal Exam GI & Abdominal Exam: Soft, Normal Bowel Sounds. absent: Distended, Guarding, Tenderness Assessment and Plan - Assessment and Plan (Free Text) Assessment: 41 yo M admitted with abdominal pain and PO intolerance. Plan: 1. Abdominal pain with PO intolerance. - Clinically improved. Tolerated PO clear liquid diet until today. - CT abdomen showed :dilated loops of proximal small bowel. Possible evidence of early/incomplete proximal bowel obstruction. Enteritis vs SBO. - IV fluids - CBC: WBC came down from 11.9 (yesterday) to 6.9 (today). - c/w pain control - c/w zofran for nausea/vomiting - General Surgery advanced diet to full liquid diet. - f/u CBC, CMP AM 2. H/o anxiety - Asymptomatic - Xanax 0.5 mg PO BID and HS. 3. DVT prophylaxis - SCDs
--- NOTE | 2017-03-14 15:05 | CP.PCM.DIS ---
Provider - Provider Date of Admission: 03/13/17 06:54 Attending physician: Kwame Gaffney MD Primary care physician: PMD: Dr. Gaffney Consults: Surgery: Paul Francis MD. Time Spent in preparation of Discharge (in minutes): 30 Hospital Course - Lab Results Lab Results: Most Recent Lab Values WBC 6.9 K/uL (4.8-10.8) 03/14/17 05:30 RBC 4.61 Mil/uL (4.40-5.90) 03/14/17 05:30 Hgb 14.1 g/dL (12.0-18.0) 03/14/17 05:30 Hct 40.6 % (35.0-51.0) 03/14/17 05:30 MCV 88.0 fl (80.0-94.0) 03/14/17 05:30 MCH 30.6 pg (27.0-31.0) 03/14/17 05:30 MCHC 34.8 g/dL (33.0-37.0) 03/14/17 05:30 RDW 12.8 % (11.5-14.5) 03/14/17 05:30 Plt Count 154 K/uL (130-400) 03/14/17 05:30 MPV 8.6 fl (7.2-11.7) 03/13/17 05:10 Neut % (Auto) 81.3 % (50.0-75.0) H 03/13/17 05:10 Lymph % (Auto) 13.0 % (20.0-40.0) L 03/13/17 05:10 [place] % (Auto) 5.3 % (0.0-10.0) 03/13/17 05:10 Eos % (Auto) 0.1 % (0.0-4.0) 03/13/17 05:10 Baso % (Auto) 0.3 % (0.0-2.0) 03/13/17 05:10 Neut # 9.6 K/uL (1.8-7.0) H 03/13/17 05:10 Lymph # 1.5 K/uL (1.0-4.3) 03/13/17 05:10 [place] # 0.6 K/uL (0.0-0.8) 03/13/17 05:10 Eos # 0.0 K/uL (0.0-0.7) 03/13/17 05:10 Baso # 0.0 K/uL (0.0-0.2) 03/13/17 05:10 PT 12.4 Seconds (9.8-13.1) 03/13/17 11:30 INR 1.2 (0.9-1.2) 03/13/17 11:30 APTT 34.9 Seconds (25.6-37.1) 03/13/17 11:30 Sodium 139 mmol/l (132-148) 03/14/17 05:30 Potassium 4.1 MMOL/L (3.6-5.0) 03/14/17 05:30 Chloride 103 mmol/L (98-107) 03/14/17 05:30 Carbon Dioxide 28 mmol/L (22-30) 03/14/17 05:30 Anion Gap 13 (10-20) 03/14/17 05:30 BUN 13 mg/dl (9-20) 03/14/17 05:30 Creatinine 0.8 mg/dL (0.8-1.5) 03/14/17 05:30 Est GFR ( Amer) > 60 03/14/17 05:30 Est GFR (Non-Af Amer) > 60 03/14/17 05:30 Random Glucose 99 mg/dL (75-110) 03/14/17 05:30 Calcium 9.4 mg/dL (8.4-10.2) 03/14/17 05:30 Total Bilirubin 1.5 mg/dl (0.2-1.3) H 03/14/17 05:30 AST 22 U/L (17-59) 03/14/17 05:30 ALT 31 U/L (21-72) 03/14/17 05:30 Alkaline Phosphatase 61 U/L (38-126) 03/14/17 05:30 Troponin I < 0.0120 ng/mL (0.00-0.120) 03/13/17 05:10 Total Protein 6.8 G/DL (6.3-8.2) 03/14/17 05:30 Albumin 4.1 g/dL (3.5-5.0) 03/14/17 05:30 Globulin 2.7 gm/dL (2.2-3.9) 03/14/17 05:30 Albumin/Globulin Ratio 1.5 (1.0-2.1) 03/14/17 05:30 Amylase 65 U/L (30-110) 03/13/17 05:10 Lipase 23 U/L (23-300) 03/13/17 05:10 Blood Type O POSITIVE 03/13/17 11:30 Blood Type Confirm O POSITIVE 03/13/17 11:57 Antibody Screen Negative 03/13/17 11:30 BBK History Checked No verified bt 03/13/17 11:30 - Hospital Course Hospital Course: 41 y/o M with PMHx significant for anxiety, s/o cholecystectomy on July/2016 , and appendectomy 4 years ago was admitted for partial/incomplete SBO. CT abdomen showed :dilated loops of proximal small bowel. Possible evidence of early/incomplete proximal bowel obstruction vs Enteritis. Surgery was consulted. IV fluids, NPO, IV morphine, alprazolam, famotidine, Ciprofloxacin and anti-emetics were provided while in hospital. WBC decreased from 11.9 to 6.9. Pt was advanced to regular solid diet by surgery, tolerated well by pt. Pt discharged, stable with NO abdominal pain, nausea or change in bowel movement. ER instructions provided. Pt will follow up with PMD within 1 week. - Date & Time of H&P Date of H&P: 03/13/17 Time of H&P: 13:10 Discharge Exam - Head Exam Head Exam: ATRAUMATIC, NORMAL INSPECTION, NORMOCEPHALIC - Eye Exam Eye Exam: Normal appearance - ENT Exam ENT Exam: Mucous Membranes Moist - Neck Exam Neck exam: Full Rom - Respiratory Exam Respiratory Exam: Clear to PA & Lateral, NORMAL BREATHING PATTERN - Cardiovascular Exam Cardiovascular Exam: REGULAR RHYTHM - GI/Abdominal Exam GI & Abdominal Exam: Normal Bowel Sounds, Soft. absent: Distended, Guarding, Hypoactive Bowel Sounds, Rigid Discharge Plan - Discharge Medications Prescriptions: Ciprofloxacin [Cipro] 500 mg PO BID 10 Days - Follow Up Plan Condition: STABLE Disposition: HOME/ ROUTINE Instructions: Gastritis (ED), Acute Abdominal Pain (DC), Acute Abdominal Pain ( GEN) Additional Instructions: -F/u with PMD within 1 week. -Continue a soft bland diet for a few days. -Continue on home medications. -Return to ER if fever, vomiting, not able to hod food and liquids down or severe abdominal pain. Referrals: Kwame Gaffney MD [Staff Provider] -
== END 2017-03-14 14:06 | disposition home or self-care (01) ==
LOC: H.ER 04:53 → H.EROBSV 06:54 → INTOOBSV 10:24 → H.ERHOLD 10:24 → OBSVTOIN 10:24 → H.MEDSURG1 12:22
PROVIDERS: ADMIT Family Medicine; ATTEND Family Medicine
DX: K56.60 Unspecified intestinal obstruction (principal); K29.70 Gastritis, unspecified, without bleeding; K52.9 Noninfective gastroenteritis and colitis, unspecified; Z79.899 Other long term (current) drug therapy; Z87.01 Personal history of pneumonia (recurrent); F17.210 Nicotine dependence, cigarettes, uncomplicated; Z90.49 Acquired absence of other specified parts of digestive tract; F41.9 Anxiety disorder, unspecified
CPT/HCPCS: 36415; 74177; 80053; 82150; 83690; 84132; 84484; 85025; 85027; 85610; 85730; 86850; 86900; 96365; 96366; 96368; 96375; 96376; 99282; C9113; G0378; J0744; J1170; J2270; J2405; J2765; J7040; J7120; Q9966; Q9967

== ENCOUNTER 2017-06-22 08:54 | Emergency (ER) | payer OTHER ==
[2017-06-22 09:00] VITALS: BMI 28.7
[2017-06-22] MEDS ORDERED: Sodium Chloride 0.9% 1,000 ML IV STA (09:27)
--- NOTE | 2017-06-22 09:42 | ED PDOC ---
HPI: Psych/Substance Abuse Time Seen by Provider: 06/22/17 09:06 Chief Complaint (Nursing): Psychiatric Evaluation Chief Complaint (Provider): Psychiatric Evaluation History Per: Patient, EMS, Family () History/Exam Limitations: no limitations Onset/Duration Of Symptoms: Hrs (x1) Current Symptoms Are (Timing): Still Present Additional Complaint(s): Haris Oneal is a 41 year old male with a past medical history of chronic back pain, anxiety, and drug abuse, who was brought to the ED by EMS for evaluation s /p overdose x1 hour. Patient states he just wanted to sleep, but took 40 mg Oxycodone, 20 mg Oxycontin, and 8 mg Xanax at 08:30 today. Patients states he uses narcotics for back pain but also abuses them. has been doing so for years. apparently was stressed out by his wifes infidelity and wrote a letter of goodbye 2 days ago, and did so again this morning. Patient denies suicidal ideations. states she took the kids to school and came home to her unresponsive. EMS apparently gave Narcan and he woke up alert, oriented, and fully awake. Patient is currently complaining of back pain ( chronic). PMD: Kwame Gaffney MD Past Medical History Reviewed: Historical Data, Nursing Documentation, Vital Signs Vital Signs: Last Vital Signs Temp 97.9 F 06/22/17 09:00 Pulse 80 06/22/17 09:00 Resp 16 06/22/17 09:00 BP 121/76 06/22/17 09:00 Pulse Ox 100 06/22/17 09:00 - Medical History PMH: Anxiety, Back Problems, Pancreatitis, Pneumonia Denies: HIV, Chronic Kidney Disease - Surgical History Surgical History: Appendectomy, Cholecystectomy - Family History Family History: States: Unknown Family Hx - Home Medications Home Medications: Ambulatory Orders Medication Instructions Recorded Oxycodone HCl [Oxycontin] 20 mg PO BID 03/13/17 Alprazolam [Xanax] 2 mg PO Q8H 06/22/17 oxyCODONE [oxyCODONE Immediate 10 mg PO Q6H 06/22/17 Release Tab] - Allergies Allergies/Adverse Reactions: Allergies Allergy/AdvReac Type Severity Reaction Status Date / Time No Known Allergies Allergy Verified 10/16/14 11:19 Review of Systems ROS Statement: Except As Marked, All Systems Reviewed And Found Negative Musculoskeletal: Positive for: Back Pain Physical Exam - Reviewed Nursing Documentation Reviewed: Yes Vital Signs Reviewed: Yes - Physical Exam Appears: Positive for: Well, Non-toxic, No Acute Distress Head Exam: Positive for: ATRAUMATIC, NORMAL INSPECTION, NORMOCEPHALIC Skin: Positive for: Normal Color, Warm, Dry. Negative for: Rash Neck: Positive for: Normal, Painless ROM, Supple Cardiovascular/Chest: Positive for: Regular Rate, Rhythm. Negative for: Murmur Respiratory: Positive for: Normal Breath Sounds. Negative for: Respiratory Distress Gastrointestinal/Abdominal: Positive for: Normal Exam, Bowel Sounds, Soft. Negative for: Tenderness Back: Negative for: L CVA Tenderness, R CVA Tenderness, Vertebral Tenderness Extremity: Positive for: Normal ROM. Negative for: Pedal Edema, Deformity Neurologic/Psych: Positive for: Alert, Oriented (x3). Negative for: Motor/ Sensory Deficits - Laboratory Results Result Diagrams: 06/22/17 09:30 06/22/17 09:30 - ECG O2 Sat by Pulse Oximetry: 100 (RA) Pulse Ox Interpretation: Normal Medical Decision Making Medical Decision Making: Time: 09:17 Initial Impression: Evaluation s/p overdose Plan: --Acetaminophen --Alcohol serum --CMP --Drug screen, urine --Salicylate --CBC w/ differential --Chest X-Ray one view --Sodium Chloride 0.9% 1,000 ml --Zofran Inj 4 mg IV --1:1 observation --Urinalysis --Reevaluation Time: 10:50 --Patient very aggressive towards staff, agitated, and tried pulling IV. Required restraint. Patient calmer now with at bedside. Time: 14:10 --Crisis saw patient and will screen for [facility]. Patient made aware of plan. Time: 15:40 --Patient attempted elopement and is now restrained. pt attempted to pull down the monitor. apparently was apart of the plan to elope. pt requested usual pain meds, xanax and opiate for pain. i ordered his daily dose. pt awaiting [facility] screening. explained to pt and about the plan. answered questions. 17:00 -Patient will be signed out to Dr. Barahona, pending [facility] Scribe Attestation: Documented by Jorje Worthington, acting as a scribe for Ann Marie Rubi MD. Provider Scribe Attestation: All medical record entries made by the Scribe were at my direction and personally dictated by me. I have reviewed the chart and agree that the record accurately reflects my personal performance of the history, physical exam, medical decision making, and the department course for this patient. I have also personally directed, reviewed, and agree with the discharge instructions and disposition. Disposition - Clinical Impression Clinical Impression: Opiate dependence - Patient ED Disposition Is Patient to be Admitted: Transfer of Care - Disposition Disposition: Transfer of Care Disposition Time: 17:00 Condition: STABLE Forms: [facility] [employer] [facility] Connect (Faroese) Patient Signed Over To: Eboni Barahona
[2017-06-22 10:09] LABS: BASO % 0.5 % (0.0-2.0); EOS # 0.1 K/uL (0.0-0.7); EOS % 0.8 % (0.0-4.0); HEMATOCRIT 44.2 % (35.0-51.0); LYMPH # 1.4 K/uL (1.0-4.3); LYMPH % 18.6 % (20.0-40.0); MEAN CELL VOLUME 88.5 fl (80.0-94.0); MEAN CORPUSCULAR HGB CONC 33.9 g/dL (33.0-37.0); MEAN PLATELET VOLUME 8.8 fl (7.2-11.7); MONO # 0.5 K/uL (0.0-0.8); MONO % 7.1 % (0.0-10.0); NEUT # 5.4 K/uL (1.8-7.0); WHITE BLOOD COUNT 7.4 K/uL (4.8-10.8)
[2017-06-22 10:12] LABS: RBC URINE 2 /hpf (0-3); URINE BACTERIA RARE (<OCC); URINE BILIRUBIN NEGATIVE (NEGATIVE); URINE BLOOD NEGATIVE (NEGATIVE); URINE COLOR YELLOW (YELLOW); URINE GLUCOSE (UA) NEG (Normal); URINE KETONE TRACE mg/dL (NEGATIVE); URINE LEUKOCYTE ESTERASE NEG Leu/uL (Negative); URINE PROTEIN 30 mg/dL (NEGATIVE); WBC URINE 1 /hpf (0-5)
[2017-06-22 10:19] LABS: ALB/GLOB RATIO 1.7 (1.0-2.1); ALCOHOL SERUM < 10 mg/dl (0-10); ALKALINE PHOSPHATASE 64 U/L (38-126); ALT/SGPT 36 U/L (21-72); AST/SGOT 30 U/L (17-59); BILIRUBIN,TOTAL 1.3 mg/dl (0.2-1.3); BLOOD UREA NITROGEN 13 mg/dl (9-20); CALCIUM 9.5 mg/dL (8.4-10.2); CARBON DIOXIDE 27 mmol/L (22-30); CHLORIDE 102 mmol/L (98-107); GFR AFRICAN-AMERICAN > 60; GLUCOSE,RANDOM 92 mg/dL (75-110); POTASSIUM 4.2 MMOL/L (3.6-5.0); SODIUM 140 mmol/l (132-148); TOTAL PROTEIN 7.4 G/DL (6.3-8.2)
--- NOTE | 2017-06-22 11:30 | RAD ---
PROCEDURE: CHEST RADIOGRAPH, 1 VIEW HISTORY: overdose COMPARISON: 10/16/2014. FINDINGS: LUNGS: The lungs are well inflated and clear. PLEURA: No pneumothorax or pleural fluid seen. CARDIOVASCULAR: Normal. OSSEOUS STRUCTURES: No significant abnormalities. VISUALIZED UPPER ABDOMEN: Normal. OTHER FINDINGS: None. IMPRESSION: No active pulmonary disease.
[2017-06-22] MEDS ORDERED: Oxycodone/Acetaminophen 5/325 mg Tab PO ONE (14:26)
[2017-06-22] MEDS ORDERED: oxyCODONE 20 mg ER Tab (oxyCONTIN) PO STA (14:37)
--- NOTE | 2017-06-22 17:19 | ED PDOC ---
- Laboratory Results Result Diagrams: 06/22/17 09:30 06/22/17 09:30 - ECG O2 Sat by Pulse Oximetry: 99 Medical Decision Making Medical Decision Makin -Received endorsement of patient from Dr. Rubi, pending involuntary psychiatric screen by [facility]. Given dose of oxycontin 20mg and xanax 2mg as typically prescribed for him for pain and anxiety. 1800 Pt reporting pain. Reviewed pt's previous prescriptions for narcotic medications Oxycontin 20mg twice a day Oxycodone 10mg 4 times a day Xanax 2mg twice a day Ordered oxycodone 10mg PO 1030p Pt reporting increasing anxiety and pain due to being in bed for so long Reviewed pt's rx with him. He reports that sometimes he'll take half his regular xanax if it is too early, and then the rest when it's due (which would be 1:30am). Ordered 1mg Xanax and IV toradol. Disposition - Clinical Impression Clinical Impression: Opiate dependence - POA Present On Arrival: None - Disposition Disposition: Transfer of Care Disposition Time: 17:00 Condition: STABLE Patient Signed Over To: Don Kirkpatrick
[2017-06-22] MEDS: oxyCODONE 10 mg Immediate Release Tab PO PRN (19:48)
--- NOTE | 2017-06-23 00:18 | ED PDOC ---
- Laboratory Results Result Diagrams: 06/22/17 09:30 06/22/17 09:30 - ECG O2 Sat by Pulse Oximetry: 99 Medical Decision Making Medical Decision Makin Patient signed out to me from Dr. Barahona pending [facility] bed availability. 0700 Patient will be signed out to Dr. Rubi from me pending [facility] bed availability. Scribe Attestation: Documented by Dianne Figueroa acting as a scribe for Don Kirkpatrick MD. Scribe Attestation: All medical record entries made by the Scribe were at my direction and personally dictated by me. I have reviewed the chart and agree that the record accurately reflects my personal performance of the history, physical exam, medical decision making, and the department course for this patient. I have also personally directed, reviewed, and agree with the discharge instructions and disposition. Disposition - Clinical Impression Clinical Impression: Opiate dependence - POA Present On Arrival: None - Disposition Disposition: Transfer of Care Disposition Time: 07:00 Condition: STABLE Forms: [facility] (Nicaraguan) Patient Signed Over To: Ann Marie Rubi Handoff Comments: pending [facility] bed availability
[2017-06-23] MEDS: oxyCODONE 10 mg Immediate Release Tab PO PRN ×3 (04:22→20:16)
[2017-06-23 07:41] VITALS: TEMP 98.1
--- NOTE | 2017-06-23 07:46 | ED PDOC ---
- Laboratory Results Result Diagrams: 06/22/17 09:30 06/22/17 09:30 - ECG O2 Sat by Pulse Oximetry: 20 Medical Decision Making Medical Decision Making: Time: 07:00 Patient signed out to me by Dr. Kirkpatrick pending [facility] bed availability. Time: 10:03 Patient became agitated. Patient was given ativan and Haldol. [id number] to pt bedside, pt states his jaw feels locked but is able to talk freely and open jaw. no focal neurologic deficit given benadryl iv Scribe Attestation: Documented by Kendrick Sarmiento, acting as a scribe for Ann Marie Rubi MD Provider Scribe Attestation: All medical record entries made by the Scribe were at my direction and personally dictated by me. I have reviewed the chart and agree that the record accurately reflects my personal performance of the history, physical exam, medical decision making, and the department course for this patient. I have also personally directed, reviewed, and agree with the discharge instructions and disposition. Disposition - Clinical Impression Clinical Impression: Opiate dependence - POA Present On Arrival: None - Disposition Disposition: Transfer of Care Disposition Time: 17:00 Condition: STABLE Patient Signed Over To: Tu Lacy Handoff Comments: [facility] [place] bed
--- NOTE | 2017-06-23 14:42 | CP.PCM.CON ---
History of Present Illness - History of Present Illness History of Present Illness: opt is a 41 year old male with a past psychiatric history of polysubstance use past medical history of chronic back pain, who was brought to the ED by EMS for evaluation s/p overdose x1 hour. Patient states he just wanted to sleep, but took 40 mg Oxycodone, 20 mg Oxycontin, and 8 mg Xanax a. Patients states he wrote a letter of goodbye 2 days ago, and did so again this morning. Patient denies suicidal ideations. states she took the kids to school and came home to her unresponsive. She states EMS gave her Narcan and he woke up alert, oriented, and fully awake. Patient refused admission to psychiatric unit , ginger brionse from ER with no insight into illness was screened and accepted for involuntary admission, awaiting bed Past Patient History - Past Medical History & Family History Past Medical History?: Yes - Past Social History Smoking Status: Heavy Smoker > 10 Cigarettes Daily - CARDIAC Hx Cardiac Disorders: No Hx Hypertension: No - PULMONARY Hx Pneumonia: Yes - NEUROLOGICAL HX Cerebrovascular Accident: No Hx Seizures: No - HEENT Hx HEENT Problems: No - RENAL Hx Chronic Kidney Disease: No - ENDOCRINE/METABOLIC Hx Endocrine Disorders: No - HEMATOLOGICAL/ONCOLOGICAL Hx Human Immunodeficiency Virus (HIV): No - INTEGUMENTARY Hx Dermatological Problems: No - MUSCULOSKELETAL/RHEUMATOLOGICAL Hx Musculoskeletal Disorders: Yes Hx Back Pain: Yes Hx Herniated Disk: Yes - GASTROINTESTINAL Hx Pancreatitis: Yes - GENITOURINARY/GYNECOLOGICAL Hx Sexually Transmitted Disorders: No - PSYCHIATRIC Hx Anxiety: Yes - SURGICAL HISTORY Hx Appendectomy: Yes Hx Cholecystectomy: Yes - ANESTHESIA Hx Anesthesia: Yes Hx Anesthesia Reactions: No Hx Malignant Hyperthermia: No Meds Allergies/Adverse Reactions: Allergies Allergy/AdvReac Type Severity Reaction Status Date / Time No Known Allergies Allergy Verified 10/16/14 11:19 - Medications Medications: Current Medications Haloperidol Lactate (Haldol) 5 mg IM ONCE ONE Stop: 06/23/17 10:03 Lorazepam (Ativan) 2 mg IVP STAT STA Stop: 06/23/17 10:03 Lorazepam (Ativan) 1 mg PO Q6 PRN PRN Reason: Anxiety Oxycodone HCl (Oxycodone Immediate Release Tab) 10 mg PO Q6 PRN PRN Reason: Pain, severe (8-10) Last Admin: 06/23/17 04:22 Dose: 10 mg Physical Exam - Psychiatric Exam Additional comments: pt in bed uncooperative poor eye contact underproductive speech, thought process circumstantial denied S/H I denied perceptual disturbances, limited insight into illness Results - Vital Signs Recent Vital Signs: Last Vital Signs Temp 98.1 F 06/23/17 07:40 Pulse 72 06/23/17 07:40 Resp 98 H 06/23/17 07:40 BP 141/65 06/23/17 07:40 Pulse Ox 20 L 06/23/17 10:05 - Labs Result Diagrams: 06/22/17 09:30 06/22/17 09:30 Labs: Laboratory Results - last 24 hr 06/22/17 06/22/17 06/22/17 09:30 09:30 09:30 WBC 7.4 RBC 4.99 Hgb 15.0 Hct 44.2 MCV 88.5 MCH 30.0 MCHC 33.9 RDW 13.0 Plt Count 185 MPV 8.8 Neut % (Auto) 73.0 Lymph % (Auto) 18.6 L [place] % (Auto) 7.1 Eos % (Auto) 0.8 Baso % (Auto) 0.5 Neut # 5.4 Lymph # 1.4 [place] # 0.5 Eos # 0.1 Baso # 0.0 Sodium 140 Potassium 4.2 Chloride 102 Carbon Dioxide 27 Anion Gap 15 BUN 13 Creatinine 0.8 Est GFR ( Amer) > 60 Est GFR (Non-Af Amer) > 60 Random Glucose 92 Calcium 9.5 Total Bilirubin 1.3 AST 30 ALT 36 Alkaline Phosphatase 64 Total Protein 7.4 Albumin 4.7 Globulin 2.8 Albumin/Globulin Ratio 1.7 Urine Color Urine Clarity Urine pH Ur Specific [place] Urine Protein Urine Glucose (UA) Urine Ketones Urine Blood Urine Nitrate Urine Bilirubin Urine Urobilinogen Ur Leukocyte Esterase Urine RBC (Auto) Urine Microscopic WBC Ur Squamous Epith Cells Urine Bacteria Salicylates < 1.0 Urine Opiates Screen Urine Methadone Screen Acetaminophen < 10.0 L Ur Barbiturates Screen Ur Phencyclidine Scrn Ur Amphetamines Screen U Benzodiazepines Scrn U Oth Cocaine Metabols U Cannabinoids Screen Alcohol, Quantitative < 10 06/22/17 06/22/17 09:30 09:30 WBC RBC Hgb Hct MCV MCH MCHC RDW Plt Count MPV Neut % (Auto) Lymph % (Auto) [place] % (Auto) Eos % (Auto) Baso % (Auto) Neut # Lymph # [place] # Eos # Baso # Sodium Potassium Chloride Carbon Dioxide Anion Gap BUN Creatinine Est GFR ( Amer) Est GFR (Non-Af Amer) Random Glucose Calcium Total Bilirubin AST ALT Alkaline Phosphatase Total Protein Albumin Globulin Albumin/Globulin Ratio Urine Color Yellow Urine Clarity Clear Urine pH 6.0 Ur Specific [place] 1.018 Urine Protein 30 Urine Glucose (UA) Neg Urine Ketones Trace Urine Blood Negative Urine Nitrate Negative Urine Bilirubin Negative Urine Urobilinogen 2.0 Ur Leukocyte Esterase Neg Urine RBC (Auto) 2 Urine Microscopic WBC 1 Ur Squamous Epith Cells 1 Urine Bacteria Rare Salicylates Urine Opiates Screen Positive H Urine Methadone Screen Negative Acetaminophen Ur Barbiturates Screen Negative Ur Phencyclidine Scrn Negative Ur Amphetamines Screen Negative U Benzodiazepines Scrn Positive U Oth Cocaine Metabols Negative U Cannabinoids Screen Negative Alcohol, Quantitative Assessment & Plan - Assessment and Plan (Free Text) Assessment: major depression polysubstance use Plan: pt to be admitted involuntary for further stabilization start ativan 1mg q8 prn for anxiety
[2017-06-23] MEDS ORDERED: DiphenhydrAMINE 50 mg/ml Inj IVP STA (16:26)
[2017-06-23] MEDS ORDERED: DiphenhydrAMINE 50 mg/ml Inj ONE (16:52)
--- NOTE | 2017-06-23 17:18 | ED PDOC ---
- Laboratory Results Result Diagrams: 06/22/17 09:30 06/22/17 09:30 - ECG O2 Sat by Pulse Oximetry: 20 - Progress ED Course And Treament: 1100: Transferred to [facility] [place]. Stable. Medical Decision Making Medical Decision Making: Time: 17:00 --Patient signed over to me, endorsed by Dr. Rubi, pending a bed in [facility]. Scribe Attestation: Documented by Tracie Peña, acting as a scribe for Tu Lacy MD Provider Scribe Attestation: All medical record entries made by the Scribe were at my direction and personally dictated by me. I have reviewed the chart and agree that the record accurately reflects my personal performance of the history, physical exam, medical decision making, and the department course for this patient. I have also personally directed, reviewed, and agree with the discharge instructions and disposition. Disposition - Clinical Impression Clinical Impression: Opiate dependence - POA Present On Arrival: None - Disposition Disposition: Other Institution Disposition Time: 23:47 Condition: STABLE
[2017-06-23 22:17] VITALS: BP 133/85; PULSE 82; RESP 17
[2017-06-25 18:56] VITALS: O2SAT 99
== END 2017-06-23 22:27 | disposition short-term general hospital (02) ==
LOC: H.ER 08:54
DX: F11.20 Opioid dependence, uncomplicated (principal); F17.210 Nicotine dependence, cigarettes, uncomplicated; G89.29 Other chronic pain; Z02.89 Encounter for other administrative examinations
CPT/HCPCS: 71010; 80053; 80320; 80324; 80329; 80345; 80346; 80349; 80353; 80358; 80361; 81003; 83992; 85025; 96361; 96372; 96374; 96375; 99285; J1200; J1630; J1885; J2060; J2405; J7040

== ENCOUNTER 2018-10-05 12:19 | Emergency (ER) | payer OTHER ==
[2018-10-05 12:19] VITALS: BMI 28.7
[2018-10-05 14:03] LABS: BASO % 0.5 % (0.0-2.0); EOS # 0.1 K/uL (0.0-0.7); EOS % 1.1 % (0.0-4.0); HEMOGLOBIN 16.3 g/dL (12.0-18.0); LYMPH # 1.8 K/uL (1.0-4.3); LYMPH % 21.6 % (20.0-40.0); MEAN CORPUSCULAR HEMOGLOBIN 31.6 pg (27.0-31.0); MEAN PLATELET VOLUME 8.7 fl (7.2-11.7); MONO # 0.6 K/uL (0.0-0.8); MONO % 7.4 % (0.0-10.0); NEUT # 5.8 K/uL (1.8-7.0); NEUT % 69.4 % (50.0-75.0); NRBC % 0.1 % (0.0-0.0); RBC 5.15 Mil/uL (4.40-5.90); RED CELL DISTRIBUTION WIDTH 13.1 % (11.5-14.5); WHITE BLOOD COUNT 8.4 K/uL (4.8-10.8)
[2018-10-05 14:13] VITALS: RESP 16; TEMP 98; O2SAT 100
[2018-10-05 14:13] LABS: ALB/GLOB RATIO 1.5 (1.0-2.1); ALBUMIN 4.9 g/dL (3.5-5.0); ALT/SGPT 70 U/L (21-72); AST/SGOT 68 U/L (17-59); BLOOD UREA NITROGEN 17 mg/dl (9-20); CALCIUM 10.2 mg/dL (8.4-10.2); GFR NON-AFRICAN AMERICAN > 60
--- NOTE | 2018-10-05 14:33 | ED PDOC ---
HPI: Chest Pain Time Seen by Provider: 10/05/18 13:20 Chief Complaint (Nursing): Chest Pain Chief Complaint (Provider): Chest Pain History Per: Patient History/Exam Limitations: no limitations Onset/Duration Of Symptoms: Days Current Symptoms Are (Timing): Still Present Pain Scale Rating Of: 0 Modifying Factors: None Exacerbating Factors: None Alleviating Factors: None Additional Complaint(s): 42 male with a past medical history of anxiety who is presenting to the ED for evaluation of chest pain onset today. Patient states that he went to the gym and started having palpitations associated with dizziness but the episode resolved on its own. He admits that he had another similar episode but this time associated with "tunnel vision" on the way to the bank. This time he stated that he felt like he was going to pass out and chest pain was radiating down to left fingertips. He reports that the episode lasted a few minutes but resolved on its own but the weird sensation to left chest and residual dizziness remains. He also said he only had three eggs this am after workout and denies taking pre- workout supplements. Patient denies any nausea, vomiting, or headaches. PMD: Kwame Gaffney - Risk Factors PE Risk Factors: Neg: Extremity Immobilization/Fx, Decreased Mobilty /Activity, Recent Major Surgery, Recent Hospitalization, Active Cancer, Previous DVT, Previous PE Past Medical History Reviewed: Historical Data, Nursing Documentation, Vital Signs Vital Signs: Last Vital Signs Temp 98.0 F 10/05/18 13:00 Pulse 75 10/05/18 13:00 Resp 16 10/05/18 13:00 BP 136/84 10/05/18 13:00 Pulse Ox 100 10/05/18 13:00 - Medical History PMH: Anxiety, Back Problems, Pancreatitis, Pneumonia Denies: Diabetes, Hepatitis, HIV, HTN, Chronic Kidney Disease, Seizures, Sexually Transmitted Disease - Surgical History Surgical History: Appendectomy, Cholecystectomy - Family History Family History: States: Unknown Family Hx - Living Arrangements Living Arrangements: With Family - Social History Current smoker - smoking cessation education provided: Yes Alcohol: None Drugs: Denies - Home Medications Home Medications: Ambulatory Orders Medication Instructions Recorded Oxycodone HCl [Oxycontin] 20 mg PO BID 03/13/17 Alprazolam [Xanax] 2 mg PO Q8H 06/22/17 oxyCODONE [oxyCODONE Immediate 10 mg PO Q6H 06/22/17 Release Tab] - Allergies Allergies/Adverse Reactions: Allergies Allergy/AdvReac Type Severity Reaction Status Date / Time No Known Allergies Allergy Verified 10/16/14 11:19 SHAWN Risk Score for UA/NSTEMI - SHAWN Risk Score Age > 64: NO 3 or more CAD Risk Factors: NO Known CAD (Stenosis greater than 50%): NO Aspirin use in past 7 days: NO Severe Angina: NO EKG ST changes greater than 0.5mm: NO Positive Cardiac Marker: NO SHAWN Score: 0 Risk %: 5% Curb-65 Severity Score - CURB-65 Severity Score Confusion: No Bun >19mg/dl (>7mmol/L): No Respiratory Rate greater than/equal to 30: No Systolic BP <90 or Diastolic BP less than/equal 60mmHg: No Age >64: No Curb-65 Score: 0 Percentage 30-day mortality: 0.6% Wells Criteria for PE - Wells Criteria for Pulmonary Embolism Clinical Signs and Symptoms of DVT: Yes P.E is #1 Diagnosis, or Equally Likely: No Heart Rate >100: No Immobilization at least 3 days;Surgery previous 4 weeks: No Previous, objectively diagnosed PE or DVT: No Hemoptysis: No Malignancy w/treatment within 6 months, or palliative: No Total Score: 3 Review of Systems ROS Statement: Except As Marked, All Systems Reviewed And Found Negative Constitutional: Positive for: Weakness (GENERALIZED). Negative for: Fever, Chills, Sweats, Malaise, Weight loss Cardiovascular: Positive for: Chest Pain, Palpitations. Negative for: Edema, Light Headedness Respiratory: Negative for: Cough, Shortness of Breath, SOB with Exertion, Wheezing Gastrointestinal: Negative for: Nausea, Vomiting, Abdominal Pain, Diarrhea Genitourinary Male: Negative for: Dysuria Neurological: Positive for: Dizziness. Negative for: Numbness, Incoordination, Change in Speech, Confusion, Altered Mental Status, Headache Psych: Negative for: Anxiety (PT STATES IT DOES NOT FEEL LIKE USUAL "PANIC ATTACKS") Physical Exam - Reviewed Nursing Documentation Reviewed: Yes Vital Signs Reviewed: Yes - Physical Exam Appears: Positive for: Well, Non-toxic, No Acute Distress Head Exam: Positive for: ATRAUMATIC, NORMAL INSPECTION, NORMOCEPHALIC Skin: Positive for: Normal Color, Warm, DRY Eye Exam: Positive for: EOMI, Normal appearance, PERRL ENT: Positive for: Normal ENT Inspection. Negative for: Nasal Congestion, Pharyngeal Erythema, Tonsillar Swelling Neck: Positive for: Normal, Painless ROM Cardiovascular/Chest: Positive for: Regular Rate, Rhythm. Negative for: Murmur Respiratory: Positive for: Normal Breath Sounds. Negative for: Respiratory Distress Pulses-Radial (L): 2+ Pulses-Radial (R): 2+ Gastrointestinal/Abdominal: Positive for: Normal Exam, Soft. Negative for: Tenderness Back: Positive for: Normal Inspection. Negative for: L CVA Tenderness, R CVA Tenderness, Vertebral Tenderness Extremity: Positive for: Normal ROM, Capillary Refill (<2 SEC CAP REFILL BILAT). Negative for: Deformity, Swelling Lymphatic: Positive for: Normal Exam. Negative for: Axilla Node Tenderness Neurological/Psych: Positive for: Awake, Alert, Normal Tone, Symmetric/Intact Strength (STRONG ), Oriented, Cerebellar Tests, registered medical transcriptionist II-XII (normal ), Other (Positive Romberg and reported dizziness on tandem walk). Negative for: Motor/Sensory Deficits - Laboratory Results Result Diagrams: 10/05/18 13:30 10/05/18 13:30 Lab Results: Troponin I < 0.0120 ng/mL (0.00-0.120) 10/05/18 13:30 Total Bilirubin 1.0 mg/dl (0.2-1.3) 10/05/18 13:30 AST 68 U/L (17-59) H D 10/05/18 13:30 ALT 70 U/L (21-72) 10/05/18 13:30 Alkaline Phosphatase 90 U/L (38-126) 10/05/18 13:30 Total Protein 8.2 G/DL (6.3-8.2) 10/05/18 13:30 Albumin 4.9 g/dL (3.5-5.0) 10/05/18 13:30 Globulin 3.3 gm/dL (2.2-3.9) 10/05/18 13:30 Albumin/Globulin Ratio 1.5 (1.0-2.1) 10/05/18 13:30 - ECG ECG: Positive for: Viewed By Fl ECG Rhythm: Positive for: Normal QRS, Normal ST Segment, Sinus Rhythm Interpretation Of ECG: VIEWED BY DR. PALMA Rate: 75 O2 Sat by Pulse Oximetry: 100 (RA) Pulse Ox Interpretation: Normal - Radiology X-Ray: Read By Radiologist X-Ray Interpretation: No Acute Disease - Progress Re-evaluation Time: 16:37 Condition: Re-examined Medical Decision Making Medical Decision Making: Time: 13:30 Plan: --CT Head --EKG --CMP --Troponin --CBC --Accucheck; 88 orthostatic vitals: lying: b/p: 123/67 hr:73 sittin/72 hr: 72 standin/71 hr: [address] head FINDINGS: HEMORRHAGE: No intracranial hemorrhage. BRAIN: No mass effect or edema. No atrophy or chronic microvascular ischemic changes. VENTRICLES: Unremarkable. No hydrocephalus. CALVARIUM: Unremarkable. PARANASAL SINUSES: Unremarkable as visualized. No significant inflammatory changes. MASTOID AIR CELLS: Unremarkable as visualized. No inflammatory changes. OTHER FINDINGS: None. IMPRESSION: Normal CT of the Head. 1558 CXR FINDINGS: LUNGS: No active pulmonary disease. PLEURA: No significant pleural effusion identified. No pneumothorax apparent. CARDIOVASCULAR: No aortic atherosclerotic calcification present. Normal cardiac size. No pulmonary vascular congestion. OSSEOUS STRUCTURES: No significant abnormalities. VISUALIZED UPPER ABDOMEN: Normal. OTHER FINDINGS: None. IMPRESSION: No active disease. No significant interval change compared to the prior examination(s). 16:37: PT RE-EVALUATED AT THIS TIME, PT STATES DIZZINESS HAS SUBSIDED POST IVF AND FOOD, LABS REVIEWED BY ME, CLINICAL FINDINGS DISCUSSED WITH PATIENT. PT GIVEN FOLLOW-UP INFORMATION FOR CARDIOLOGY, FOR FOLLOW-UP ON PALPITATIONS. PT INSTRUCTED TO SEE PM IN 1-2 WEEKS. PT STABLE FOR D/C , PATIENT REPORTS UNDERSTANDING AND AGREES WITH D/C PLAN. Scribe Attestation: Documented by Estelle Lam, acting as a scribe for Vandana Marcelo TIE BUCKER. Provider Scribe Attestation: All medical record entries made by the Scribe were at my direction and personally dictated by me. I have reviewed the chart and agree that the record accurately reflects my personal performance of the history, physical exam, medical decision making, and the department course for this patient. I have also personally directed, reviewed, and agree with the discharge instructions and disposition. Disposition - Clinical Impression Clinical Impression: Palpitations, Dizziness - Patient ED Disposition Is Patient to be Admitted: No Counseled Patient/Family Regarding: Diagnosis, Need For Followup, Rx Given - Disposition Referrals: Kwame Gaffney MD [Staff Provider] - Kait Pineda MD [Staff Provider] - Disposition: Routine/Home Disposition Time: 16:37 Condition: IMPROVED Instructions: Dizziness, Nonvertigo, (DC), Palpitations (DC) Print Language: CITIZEN OF [place] - POA Present On Arrival: None
--- NOTE | 2018-10-05 15:01 | CT ---
Date of service: 10/05/2018 PROCEDURE: CT HEAD WITHOUT CONTRAST. HISTORY: persistent dizziness COMPARISON: None available. TECHNIQUE: Axial computed tomography images were obtained through the head/brain without intravenous contrast. Radiation dose: Total exam DLP = 1184.19 mGy-cm. This CT exam was performed using one or more of the following dose reduction techniques: Automated exposure control, adjustment of the mA and/or kV according to patient size, and/or use of iterative reconstruction technique. FINDINGS: HEMORRHAGE: No intracranial hemorrhage. BRAIN: No mass effect or edema. No atrophy or chronic microvascular ischemic changes. VENTRICLES: Unremarkable. No hydrocephalus. CALVARIUM: Unremarkable. PARANASAL SINUSES: Unremarkable as visualized. No significant inflammatory changes. MASTOID AIR CELLS: Unremarkable as visualized. No inflammatory changes. OTHER FINDINGS: None. IMPRESSION: Normal CT of the Head.
--- NOTE | 2018-10-05 16:02 | RAD ---
Date of service: 10/05/2018 HISTORY: chest pain COMPARISON: 06/22/2017. TECHNIQUE: Chest PA and lateral views FINDINGS: LUNGS: No active pulmonary disease. PLEURA: No significant pleural effusion identified. No pneumothorax apparent. CARDIOVASCULAR: No aortic atherosclerotic calcification present. Normal cardiac size. No pulmonary vascular congestion. OSSEOUS STRUCTURES: No significant abnormalities. VISUALIZED UPPER ABDOMEN: Normal. OTHER FINDINGS: None. IMPRESSION: No active disease. No significant interval change compared to the prior examination(s).
[2018-10-05 16:44] VITALS: BP 130/71
[2018-10-05 19:18] VITALS: PULSE 75
--- NOTE | 2018-10-05 22:46 | CARD ---
APPROVED REPORT Date of service: 10/05/2018 EKG Measurement Heart [id number] <Conclusion> Normal sinus rhythm Normal ECG
== END 2018-10-05 16:44 | disposition home or self-care (01) ==
LOC: H.ER 12:19
DX: R00.2 Palpitations (principal); F41.9 Anxiety disorder, unspecified